=== PATIENT | female | born 1950 | race Caucasian/White ===

== ENCOUNTER → 2022-08-08 | Outpatient (CLI) | payer MEDICARE, SELFPAY ==
--- NOTE | 2022-08-08 13:33 | US_ITS ---
INDICATION: UTI EXAMINATION: Ultrasound US Kidney(s) complete (eg, kidneys and bladder) TECHNIQUE: Adame scale and color doppler images were obtained of the kidneys. COMPARISON: None. FINDINGS: RIGHT KIDNEY: 9.6 x 5.2 x 5.0 cm. There is no hydronephrosis. No shadowing calculus, focal lesion or perinephric collection is demonstrated. LEFT KIDNEY: 9.4 x 5.5 x 5.4 cm. There is no hydronephrosis. No shadowing calculus, focal lesion or perinephric collection is demonstrated. URINARY BLADDER: No significant contour abnormalities. No significant post void residual volume. US/Kidney and Bladder IMPRESSION: No hydronephrosis. Electronically Signed: Gustavo Lux MD at 22:52 EDT ,
== END | disposition home or self-care (01) ==
LOC: US 13:31
PROVIDERS: PCP Internal Medicine; Visit Provider Urology
DX: N39.0 Urinary tract infection, site not specified (principal)
CPT/HCPCS: 76770

== ENCOUNTER 2022-09-08 08:43 | Day surgery (SDC) | payer MEDICARE, SELFPAY ==
[2022-09-08] VITALS (7 sets, daily range): BP systolic 104–144; BP diastolic 54–75; PULSE 62–71; RESP 16; TEMP 36.2–37.3; O2SAT 95–100; BMI 28.3
--- NOTE | 2022-09-08 | BLA_PTH ---
PATIENT: SUZANNE JOHNSON [place] [facility] [place][id number] AGE/SX: 71/F ROOM: RE09/08/[address]: Dr. Flor Steen MD : 1950 BED: DIS: 09/08/2022 SPEC #: [id number] RECD: 09/08/22 13:48 STATUS: KATHIA MO #: [id number] VANE: 09/08/22 00:[address]: Flor Steen DEPT: SURGICAL PATHOLOGY RECD BY: Mulugeta Aly ENTERED: 09/08/22 13:48 SP TYPE: BLADDER BX OTHR DR: Dr. Magalie Fournier MD Tissues: Urinary bladder, NOS Procedures: Surgery Specimen Level IV HEADER OPERATION: Cysto, biopsy, fulguration, bladder tumor PRE-OP DIAGNOSIS: Lesion of bladder, nocturia TISSUE SUBMITTED: Bladder biopsy MICROSCOPIC DIAGNOSIS Bladder, biopsy: Fragments of urothelial mucosa with epithelial hyperplasia, chronic inflammation and congestion. Negative for malignancy. See comment. JAKE:sandra 09/09/2022 COMMENT Detrusor muscle is not present in the specimen. This case has been reviewed in consultation with Dr. Matamoros who concurs with the above diagnosis. MICROSCOPIC DESCRIPTION Slides are reviewed. GROSS DESCRIPTION Received in fixative is one container labeled with the patient's name and designated bladder biopsy. The specimen consists of two irregular fragments of light zimmer soft tissue that in aggregate measure 0.3 x 0.2 x 0.1 cm. The specimen is totally submitted in one cassette. / JAKE:sandra 09/08/2022 TC:3 CPT: 64751
--- NOTE | 2022-09-08 08:54 | EKG12_ITS ---
Test Reason : PREOP Blood Pressure : / mmHG Vent. Rate : 061 BPM Atrial Rate : 061 BPM P-R Int : 196 ms QRS Dur : 086 ms QT Int : 438 ms P-R-T Axes : 051 047 062 degrees QTc Int : 440 ms Normal sinus rhythm Normal ECG No previous ECGs available Confirmed by SARAH WELCH, JOSE ([id number]), health editor FARHANA RODAS ([id number]) on 09/09/2022 1:11:32 PM Referred By: Flor Steen Confirmed By:JOSE SMITH MD
[2022-09-08] MEDS: Lactated Ringers 1,000 ML 15 ML IV (09:21)
[2022-09-08 09:47] LABS: Anion Gap 6 (5-15); BUN 12 mg/dL (7-18); BUN/Creat Ratio 13.8 RATIO (10-20); Calcium,Total 9.1 mg/dL (8.5-10.1); Chloride 104 mmol/L (98-107); Creatinine, Serum 0.87 mg/dL (0.55-1.02); EST Glomerular Filtration Rate 68 mL/min (>60); Est Glom Filt Rate - Afr Amer 83 mL/min (>60); Estimated Creatinine Clearance 59.35 ml/min; Glucose 106 mg/dL (74-106); Potassium 4.1 mmol/L (3.5-5.1); Sodium Level 138 mmol/L (136-145)
--- NOTE | 2022-09-08 10:23 | OP.PCM_ITS ---
Report of Operation Date of Procedure: 09/08/22 Pre-Operative Diagnosis: Bladder lesion, Cystitis cystica, Recurrent urinary tr act infection Post-Operative Diagnosis: Same Surgery/Procedure Performed:: Cystoscopy with bladder biopsy Surgeon: Flor Steen Type of Anesthesia: MAC Specimen's removed: Bladder biopsy x2 Description of Procedure: The patient is a 71-year-old female with recurrent urinary tract infections who underwent a cystoscopy in the office. At that time a complex appearing cystic lesion was identified on the area of the trigone.She now presents for biopsy under anesthesia. Informed consent was obtained.The patient was taken to the operating room placed on the operating room table. Anesthesia monitored the head, neck, airway, IV access and vital signs throughout the case. Once anesthesia was appropriately administered, she was placed into dorsolithotomy position and was prepped and draped in usual sterile fashion. The cystoscope was inserted through the urethra under direct visualization into the urinary bladder. The bladder mucosa was visualized in its entirety finding diffuse cystitis cystica lesions. Using flexible biopsy forceps, the area of concern on the trigone was removed. The base was fulgurated for hemostatic control and tissue treatment. The patient's bladder was emptied and the case was terminated. She was awakened and taken to the recovery room in good condition. There were no complications during this procedure. Grafts/Implants Used: None Complications None Admit VTE Documentation VTE Present on Admission: Yes VTE Mechan Device Prophylaxis: SCD's VTE Pharm Prophylaxis ordered?: No Reason prophylaxis not ordered:: Treatment Not Indicated
[2022-09-08] MEDS: Cefazolin 2 GM in 0.9% Normal Saline 100 ML IV (10:24)
--- NOTE | 2022-09-08 10:25 | DCINST_ITS ---
Discharge Instructions Diet Discharge Diet: No restrictions Activity Discharge Activity: Return to Normal Activity Dressing / Incision Call your doctor if you observe: Fever of 101 or Higher, Inability to urinate and Inability to have a bowel movement Follow Up Care Please Follow Up With: Flor Steen MD When: Call office for appointment Test Results: Test results from this visit will be discussed in further detail at your follow- up appointment, if applicable. Discharge Plan Admission Attending Provider: Flor Steen Primary Care Provider: Magalie Fournier Discharge Orders/Prescriptions Prescriptions: New phenazopyridine [Pyridium] 200 mg tablet 200 mg PO TID PRN PRN (Reason: Bladder Spasms) 7 Days Qty: 30 0RF cephalexin [cephalexin] 500 mg capsule 500 mg PO Q12 3 Days Qty: 6 0RF Continued propranolol 160 mg Capsule,Extended Release 24 Hr 160 mg PO QHS polyethylene glycol 3350 [Miralax] 17 gram Powder In Packet 17 g PO DAILY atorvastatin 10 mg Tablet 10 mg PO QHS levothyroxine 25 mcg Tablet 25 mcg PO DAILY nortriptyline 25 mg Capsule 25 mg PO QHS losartan-hydrochlorothiazide 100-25 mg Tablet 1 tab PO DAILY pantoprazole 40 mg Tablet,Delayed Release (Dr/Ec) 40 mg PO BID estradiol 0.01 % (0.1 mg/gram) Cream 1 g VAGINAL TUSA loratadine [Claritin] 10 mg Tablet 10 mg PO DAILY PRN (Reason: ALLERGIES) cholecalciferol (vitamin D3) [Vitamin D3] 50 mcg (2,000 unit) Capsule 50 mcg PO DAILY Ubrelvy 100 mg Tablet 100 mg PO PRN PRN (Reason: MIGRAINES) Referrals / Follow Up: Magalei Fournier MD [Primary Care Provider] - Disposition Disposition (needs filled in before D/C Order can be placed): Home, Self Care
== END 2022-09-08 12:26 | disposition home or self-care (01) ==
LOC: SDC 08:45 → AC 08:46
PROVIDERS: Anesthesiology; PCP Internal Medicine; Referring Provider Urology; Visit Provider Urology
PROC: 0TBB8ZX Excision of Bladder, Via Natural or Artificial Opening Endoscopic, Diagnostic (ICD-10-PCS; CPT 52204; principal; 2022-09-08 10:20)
DX: N30.20 Other chronic cystitis without hematuria (principal); L85.9 Epidermal thickening, unspecified; R35.1 Nocturia; E07.9 Disorder of thyroid, unspecified; K21.9 Gastro-esophageal reflux disease without esophagitis; E78.00 Pure hypercholesterolemia, unspecified; I10 Essential (primary) hypertension; G43.909 Migraine, unspecified, not intractable, without status migrainosus; Z79.899 Other long term (current) drug therapy
CPT/HCPCS: 52204; 00910; 80048; 84443; 88305; 93005; J7120; J2405